=== PATIENT | male | born 1945 | race Caucasian/White ===

== ENCOUNTER → 2024-09-08 12:37 | Outpatient (REF) | payer MEDICARE, SELFPAY ==
[2024-09-08 13:29] LABS: Hematocrit 37.1 % (39.0-52.0); Hemoglobin 12.6 g/dL (13.0-18.0); Mean Corpuscular Hgb 30.4 pg (27.0-31.0); Mean Corpuscular Volume 89.6 fL (80.0-94.0); Platelet Count 174 10^3/uL (130-400); Red Blood Cell Count 4.14 10^6/uL (4.70-6.10); Red Cell Dist. Width 13.7 % (11.5-14.5); White Blood Cell Count 3.1 10^3/uL (4.8-10.8)
[2024-09-08 13:33] LABS: Urine Albumin Negative (Neg - Trace); Urine Bilirubin Negative (Negative); Urine Character Clear (Clear); Urine Color Yellow; Urine Glucose Negative (Negative); Urine Ketone Negative (Negative); Urine Leukocyte Negative (Negative); Urine Nitrite Negative (Negative); Urine Occult Blood Negative (Negative); Urine Urobilinogen Negative (Neg - 1+); Urine pH 6.5 (5.0-9.0)
[2024-09-08 13:41] LABS: ALT (SGPT) 21 U/L (0-50); AST (SGOT) 22 U/L (17-59); Albumin 4.6 g/dl (3.5-5.0); Alkaline Phosphatase 101 U/L (38-126); Blood Urea Nitrogen 24 mg/dl (9-20); Calcium 9.3 mg/dl (8.4-10.2); Carbon Dioxide 32 mmol/L (22-30); Chloride 95 mmol/L (98-107); Glucose 84 mg/dl (70-99); Potassium 4.8 mmol/L (3.5-5.1); Sodium 136 mmol/L (135-145); Total Bilirubin 0.7 mg/dl (0.2-1.3); Total Protein 6.8 g/dl (6.3-8.2); eGFR > 60.00
[2024-09-08 13:48] LABS: Absolute Neutrophils -Man Diff 1.8 10^3/uL (1.4-6.5); Atypical Lymphocytes 1 %; Band Neutrophils 3 % (0-3); Lymphocytes 28 % (20-51); Monocytes 11 % (2-9); Segmented Neutrophils 57 % (42-75)
[2024-09-08 13:49] LABS: Anisocytosis 1+; Normal RBC Morphology No; Ovalocytes 1+; Platelets Checked Yes
[2024-09-08 13:50] LABS: Hypochromasia Slight; Polychromasia Slight; Total Cells Counted 100
[2024-09-08 14:08] LABS: Procalcitonin 0.14 ng/ml (0.0-0.25)
== END ==
LOC: REG 12:37
PROVIDERS: ATTENDING PHYSICIAN Family Medicine
DX: R53.83 Other fatigue (principal); I95.0 Idiopathic hypotension; R53.1 Weakness; R68.83 Chills (without fever); J90 Pleural effusion, not elsewhere classified
CPT/HCPCS: 36415; 71046; 80053; 81003; 84145; 85025; 86140

== ENCOUNTER → 2024-09-14 09:47 | Outpatient (REF) | payer MEDICARE, SELFPAY | LOC: RAD 09:47 | PROVIDERS: ATTENDING PHYSICIAN Family Medicine | DX: R51.9 Headache, unspecified (principal); R26.81 Unsteadiness on feet; I62.00 Nontraumatic subdural hemorrhage, unspecified | CPT/HCPCS: 70450 ==

== ENCOUNTER 2024-09-15 18:24 | Inpatient (IN) | payer MEDICARE, SELFPAY ==
[2024-09-14] VITALS (12 sets, daily range): BP systolic 118–142; BP diastolic 64–106
[2024-09-14 11:43] LABS: % Basophils 0.2 % (0-2); % Eosinophils 0.2 % (0-6); % Immature Granulocytes 0.7 % (0-0.5); % Lymphocytes 18.9 % (20.5-51.1); % Monocytes 19.9 % (1.7-9.3); % Neutrophils 60.1 % (42.2-75.2); Absolute Lymphocytes 0.8 10^3/uL (1.2-3.4); Absolute Monocytes 0.8 10^3/uL (0.1-0.6); Absolute Neutrophils 2.5 10^3/uL (1.4-6.5); Hematocrit 38.4 % (39.0-52.0); Hemoglobin 12.9 g/dL (13.0-18.0); Mean Corp Hgb Conc. 33.6 g/dL (33.0-37.0); Mean Corpuscular Hgb 29.7 pg (27.0-31.0); Mean Corpuscular Volume 88.5 fL (80.0-94.0); Mean Platelet Volume 8.6 fL (7.4-10.4); Nucleated Red Blood Cells % 0 % (-); Platelet Count 217 10^3/uL (130-400); Red Blood Cell Count 4.34 10^6/uL (4.70-6.10); Red Cell Dist. Width 13.6 % (11.5-14.5); White Blood Cell Count 4.2 10^3/uL (4.8-10.8)
[2024-09-14 12:02] LABS: ALT (SGPT) 22 U/L (0-50); AST (SGOT) 24 U/L (17-59); Albumin 4.7 g/dl (3.5-5.0); Alkaline Phosphatase 118 U/L (38-126); Blood Urea Nitrogen 26 mg/dl (9-20); Calcium 9.9 mg/dl (8.4-10.2); Carbon Dioxide 29 mmol/L (22-30); Chloride 98 mmol/L (98-107); Glucose 94 mg/dl (70-99); Potassium 4.9 mmol/L (3.5-5.1); Sodium 136 mmol/L (135-145); Total Bilirubin 0.9 mg/dl (0.2-1.3); Total Protein 6.9 g/dl (6.3-8.2); eGFR > 60.00
--- NOTE | 2024-09-14 12:56 | CON.NEURO ---
Consultation
Order
Date of Consultation: 09/14/24
Requesting Provider: Mina Palomares MD
Reason for Consult: Ataxia
Neurology Consultation Note.
HPI: This is a 78-year-old man on Venetoclax/Obinutuzumab who presented to [facility] on 09/14/2024 with intermittent dizziness, imbalance, and left hearing loss that began 10 days ago. Upon getting out of bed, he experienced severe
dizziness. For the next two days, he had spinning sensations and imbalance, necessitating the use of a walker. The spinning sensation resolved, but dizziness and imbalance persisted, particularly when changing positions. He also noted reduced
hearing, predominantly in the left ear, accompanied by clicking noises. Associated symptoms included chills, nausea, and leg weakness. The patient denies ear pressure or pain, head trauma, fever. He reports intermittent headaches relieved by Tylenol.
Mr. Ramírez recalls experiencing flu-like symptoms for most of July, with negative tests for RSV, COVID, and influenza. Blood cultures were also negative. On August 20, the patient reportedly had an anaphylactic reaction to IVIG infusion. He was
treated with steroids. Following this episode, he had difficulty walking for two days but did not require hospitalization.
The patient was reportedly seen by Janis Hankins MD(ENT) around 1 year ago for sound amplification/hearing impairment and was fount to have 'fluid in my ear'
The patient has a history of subdural hematoma in 2019 and atrial fibrillation. He was previously on AC but discontinued it after the subdural hematoma. He is not on ASA.
ER VS: 135/86, 72, afebrile.
EKG: NSR, first degree of AV block, QTc Int : 421 ms
PDMP: no recently prescribed medications
Labs: platelets�217, absolute lymphocyte count�0.8
CT head wo contrast (09/14/24)�moderate generalized atrophy.
PMH: h/o traumatic R subdural hematoma(2019), CLL on acalabrutinib, PA Fib(s/o ablation), HTN, DLP, HFpEF, CKD, nephrolithiasis, eating disorder, NOS, vit D deficiency
PSH: ILR, R jagdish holes, shoulder arthroscopy, knee arthroscopy, PleurX
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
FH: colon cancer
All:PNC
ROS: Constitutional: Negative. Negative for chills, fever and unexpected weight change.
HENT: Positive for left greater than right hearing impairment
Eyes: Negative. Negative for photophobia, pain and visual disturbance.
Respiratory: Negative for cough, choking and shortness of breath.
Cardiovascular: Negative for chest pain, palpitations and leg swelling.
Gastrointestinal: Positive for intermittent nausea
Endocrine: Negative. Negative for cold intolerance.
Musculoskeletal: Positive for change in gait
Skin: Negative for rash.
Allergic/Immunologic: Negative. Negative for immunocompromised state.
Neurological: Positive for imbalance
General: Well developed. In no acute distress.
Cardio: Regular rate and rhythm without murmur. Extremities are without cyanosis or edema.
Neuro:
Mental Status: Alert, oriented to person, place, and date. Normal attention and recall. Mildly impaired comprehension, probably due to hearing impairment good fund of knowledge. Follows complex requests across the midline. Comprehension, naming,
and repetition intact. Immediate and delayed recall 3/3.
Cranial Nerves: Pupils are equally round and reactive to light. EOMs full. Visual mckeon full to confrontation. No ptosis. No nystagmus. Face symmetric. Absent hearing on the L and impaired on the right. No lateralization on Hensley's testing.
The palate elevated well. SCMs and traps 5/5. Tongue midline. No dysarthria.
Motor: Normal bulk and tone. No pronator or arm drift. Strength 5/5 throughout. No clonus.
Reflexes: Grasp on the right
Sensory: Normal vibration at the toes.
Coordination: No dysmetria or tremor or HTS
Gait: deferred
Assessment and Plan:
I. Probable peripheral vertigo
II. History of traumatic R subdural hematoma(2019)
III. Ambulatory dysfunction
IV. CLL, chronic immunosuppression
-Fall precautions
-Please obtain orthostatic vital signs
-Brain MRI wo brenda to rule out subacute AICA infarct
-Meclizine 25 mg every 8 hours as needed
-PT
-ENT consult
-Please obtain medical records from [facility] and [facility]
-Will follow
I personally reviewed all radiology and labs along with past medical records pertinent to current medical problems. Total time spent in patient care is 60 minutes.
Thank you for allowing us to participate in the care of this patient. We will continue to follow. Please do not hesitate to contact us with any questions or concerns.
Subjective/Objective
Subjective Data
Date of Service: September 14, 2024
Objective Data
Vital Signs
Temp Pulse Resp BP Pulse Ox
36.7 C 67 22 137/95 100
09/14/24 11:13 09/14/24 12:45 09/14/24 12:45 09/14/24 12:48 09/14/24 12:45
Lab Results
09/14/24 11:24
09/14/24 11:24
Sodium 136 mmol/L (135-145) 09/14/24 11:24
Potassium 4.9 mmol/L (3.5-5.1) 09/14/24 11:24
BUN 26 mg/dl (9-20) H 09/14/24 11:24
Glucose 94 mg/dl (70-99) 09/14/24 11:24
Calcium 9.9 mg/dl (8.4-10.2) 09/14/24 11:24
Patient Allergies
Penicillins Allergy (Verified 09/14/24 11:12)
Hives
Medications
-
Home Medications
�Medication �Instructions �Recorded
ezetimibe 10 mg tablet 10 mg PO HS High cholesterol 01/05/20
Saccharomyces boulardii 250 mg 250 mg PO DAILY Gastrointestinal 12/28/22
capsule (Florastor) issue
acalabrutinib maleate 100 mg 100 mg PO DAILY Cancer 12/28/22
tablet (Calquence (acalabrutinib
maleate))
cholecalciferol (vitamin D3) 50 50 mcg PO DAILY Supplement 12/28/22
mcg (2,000 unit) tablet (Vitamin
D3)
furosemide 20 mg tablet 20 mg PO MOWESA Fluid 12/28/22
retention/Swelling
spironolactone 25 mg tablet 12.5 mg PO DAILY Blood pressure 12/28/22
rosuvastatin 10 mg tablet (Crestor) 10 mg PO HS High Cholesterol 08/08/23
acetaminophen 325 mg tablet 650 mg (2 x 325 mg) PO Q4HPRN PRN 08/09/23
Mild Pain / Temp > 101 #0 tabs
metoprolol succinate 25 mg 12.5 mg (1/2 x 25 mg) PO DAILY 08/09/23
tablet,extended release 24 hr Blood pressure #0 tabs
midodrine 5 mg tablet 5 mg PO TIDPRN PRN SBP < 90 #10 08/09/23
tabs
psyllium husk (aspartame) 3.4 gram 1 packet PO DAILY Constipation #44 08/09/23
oral powder packet (Metamucil ea
Fiber Singles)
tamsulosin 0.4 mg capsule 0.4 mg PO DAILY Urinary issue #30 08/09/23
caps
tramadol 50 mg tablet 25 mg (1/2 x 50 mg) PO Q8H PRN 08/09/23
mod-severe pain #10 tabs
Vital Signs and Labs
-
Vital Signs and Labs:
Vital Signs
Temp Pulse Resp BP Pulse Ox
36.7 C 67 22 137/95 100
09/14/24 11:13 09/14/24 12:45 09/14/24 12:45 09/14/24 12:48 09/14/24 12:45
Lab Results
09/14/24 11:24
09/14/24 11:24
Sodium 136 mmol/L (135-145) 09/14/24 11:24
Potassium 4.9 mmol/L (3.5-5.1) 09/14/24 11:24
BUN 26 mg/dl (9-20) H 09/14/24 11:24
Glucose 94 mg/dl (70-99) 09/14/24 11:24
Calcium 9.9 mg/dl (8.4-10.2) 09/14/24 11:24
Home Medications
-
Home Medications
ezetimibe 10 mg tablet 10 mg PO HS High cholesterol 01/05/20
Saccharomyces boulardii 250 mg capsule (Florastor) 250 mg PO DAILY Gastrointestinal issue 12/28/22
acalabrutinib maleate 100 mg tablet (Calquence (acalabrutinib maleate)) 100 mg PO DAILY Cancer 12/28/22
cholecalciferol (vitamin D3) 50 mcg (2,000 unit) tablet (Vitamin D3) 50 mcg PO DAILY Supplement 12/28/22
furosemide 20 mg tablet 20 mg PO MOWESA Fluid retention/Swelling 12/28/22
spironolactone 25 mg tablet 12.5 mg PO DAILY Blood pressure 12/28/22
rosuvastatin 10 mg tablet (Crestor) 10 mg PO HS High Cholesterol 08/08/23
acetaminophen 325 mg tablet 650 mg (2 x 325 mg) PO Q4HPRN PRN Mild Pain / Temp > 101 #0 tabs 08/09/23
metoprolol succinate 25 mg tablet,extended release 24 hr 12.5 mg (1/2 x 25 mg) PO DAILY Blood pressure #0 tabs 08/09/23
midodrine 5 mg tablet 5 mg PO TIDPRN PRN SBP < 90 #10 tabs 08/09/23
psyllium husk (aspartame) 3.4 gram oral powder packet (Metamucil Fiber Singles) 1 packet PO DAILY Constipation #44 ea 08/09/23
tamsulosin 0.4 mg capsule 0.4 mg PO DAILY Urinary issue #30 caps 08/09/23
tramadol 50 mg tablet 25 mg (1/2 x 50 mg) PO Q8H PRN mod-severe pain #10 tabs 08/09/23
--- NOTE | 2024-09-14 15:01 | HPS.HSE ---
Addendum entered and electronically signed by Selam Omalley MD 09/14/24 16:21:
I saw and examined the patient.
The MODERN LANGUAGES PROFESSOR or PA's note was reviewed and I agree with the note.
Comment:
78 y/o pleasant gentleman presented to the hospital with about 10 days of dizziness. He also had some hearing loss. He stated that he always had mild hearing loss in the ear but it is markedly gone down. He also hears some clicking noise in the
left ear mostly. He states that laying in bed or sitting in 1 position does not cause any problems when he changes position to either sides or sits up or stands up and starts walking he feels uncomfortable to point where he has been using a walker.
nO fever. Had a URI in Jul which lasted almost all of JUL. Father with H/O hearing loss at old age.
On examination awake alert oriented conversant
Cardiovascular system S1-S2 appreciated
Chest clear to auscultation
Abdomen soft and nontender
Neuro exam-no cranial nerve deficits noted except for decreased hearing
No facial droop
5 x 5 strength bilateral upper extremities and lower extremity
No sensory loss
Reflexes slightly hyperreflexic legs
# Vertigo
From history and exam mostly appears like peripheral vertigo
However get an MRI to rule out acute stroke-the brainstem
As needed meclizine
ENT evaluation
PT consultation for balance training
Orthostatic vital signs
Head CT with no acute changes
# Hearing loss
Patient has seen Dr. Bruce a year ago
Will consult
# Atrial fibrillation-paroxysmal diagnosed in 2011
Taken off of anticoagulation in 2019 when he had subdural hemorrhage
Patient had a Linq monitor placed in 2019 with no evidence of A-fib on interrogation per patient
He follows with [facility] cardiology
History of A-fib ablation
Continue with metoprolol
# Prostate disease-continue finasteride
# Chronic HFpEF-Lasix as needed
# CLL-on Venclexta
# Hyperlipidemia-on Crestor
# History of pleural effusion with thoracentesis and left Pleurx catheter in the past
# History of subdural hematoma
# Diverticulosis
# Multilevel C-spine DJD
# DVT prophylaxis
# Full code
Discussed with family at bedside
Original Note:
Family Physician
-
Family Physician: Reji Bosch
Chief Complaint
-
Weakness and Left Hearing Loss
History of Present Illness
Patient is a 78 y/o male past medical history of CLLD, CHF, paroxysmal A-Fib, and CKD who presents with weakness and hearing loss. Patent reports reports about 10 days he developed significant dizziness while lying in bed. He notes the dizziness
symptoms lasted for about 3 days, but he continues to have a sensation of feeling unbalanced. He notes he is having difficulty ambulating and his lower extremities seem weak. Over the past few days he has noted decreasing hearing particularly on
the left. He denies any ringing in the ears. He denies weakness of the upper extremities.
Medical History
Past Medical History
Past Medical History: Reports Other
Additional Past Medical History:
CLL
Chronic HFpEF
Paroxysmal Atrial Fibrillation
Hypertension
CKD III
Persistent / Recurrent Left Pleural Effusion
Subdural Hematoma
BPH
Past Surgical History: Reports Other
Additional Past Surgical History:
Pleurodesis
Pleurx catheter placement / removal
Dione holes
Social History
Tobacco: Non-smoker
Alcohol: None
Drug: None
Family History
Family History: Not pertinent
Allergies / Home Medications
Allergies reflects when Allergies were last updated in [employer].
Home Medications with original date entered in [employer]
Allergy/Medication List:
Allergies
Allergy/AdvReac Type Severity Reaction Status Date / Time
Penicillins Allergy Hives Verified 09/14/24 11:12
Home Medications
Saccharomyces boulardii 250 mg capsule (Florastor) 250 mg PO DAILY Gastrointestinal issue 12/28/22
cholecalciferol (vitamin D3) 50 mcg (2,000 unit) tablet (Vitamin D3) 50 mcg PO DAILY Supplement 12/28/22
furosemide 20 mg tablet 20 mg PO DAILY Fluid retention/Swelling 12/28/22
rosuvastatin 10 mg tablet (Crestor) 10 mg PO HS High Cholesterol 08/08/23
psyllium husk (aspartame) 3.4 gram oral powder packet (Metamucil Fiber Singles) 1 packet PO DAILY Constipation #44 ea 08/09/23
finasteride 5 mg tablet 5 mg PO DAILY 09/14/24
metoprolol tartrate 25 mg tablet 25 mg PO DAILY 09/14/24
venetoclax 100 mg tablet (Venclexta) 200 mg PO DAILY 09/14/24
Review of Systems
-
A 12 point ROS was completed and negative except as noted: Yes
Constitutional: Denies Fever or Chills
EENT: Denies Sore Throat or Runny Nose
Respiratory: Denies Cough or Trouble Breathing
Neurological: Reports See HPI
Physical Exam
Vital Signs
Vital Signs
Temp Pulse Resp BP Pulse Ox
98.1 F 69 17 142/64 100
09/14/24 11:13 09/14/24 14:00 09/14/24 14:00 09/14/24 14:00 09/14/24 14:00
Physical Exam
General: Comfortable and Conversant
HEENT: Anicteric, Moist mucous membranes, PERRLA and Other ( Nystagmus with gaze to the Left; Small amount of dry cerumen present in left external auditory canal; Bilateral TMs appears pearly clear without retraction)
Respiratory: Clear and Non Labored Respirations
Cardiac: S1/S2 and Regular Rhythm
GI: Soft and Non Tender
Rectal: Deferred by Provider
Musculoskeletal: No Clubbing, No Cyanosis and No Edema
Skin: Warm and Dry
Neuro: Awake, Alert, Oriented and No Motor Deficits
Psych: Calm
Laboratory Results
-
09/14/24 11:24
09/14/24 11:24
Laboratory Results
Total Bilirubin 0.9 mg/dl (0.2-1.3) 09/14/24 11:24
AST 24 U/L (17-59) 09/14/24 11:24
ALT 22 U/L (0-50) 09/14/24 11:24
Alkaline Phosphatase 118 U/L (38-126) 09/14/24 11:24
Data Reviewed
-
CT Scan: Report Reviewed by me
Lab Data: Labs Reviewed by me
Old Records: Reviewed
Impression/Plan
-
Dysequilibrium / Left Hearing Loss, suspect inner ear related
-Neurology consulted by ED
-Consult ENT
-Check Brain MRI
-Continue Meclizine PRN
-Consult PT/OT
Chronic HFpEF
-Continue Lasix
-Monitor Daily Weights
Paroxysmal Atrial Fibrillation
-Patient is not on anticoagulation following subdural hematoma
-Continue metoprolol
CLL
-Continue Venclexta
-Overall counts appear stable
Essential Hypertension
-Continue metoprolol
Hyperlipidemia
-Continue Crestor
CKD III
-Creatinine at baseline
BPH
-Continue finasteride
Hx Subdural Hematoma s/p Dione Holes
DVT proph: SCDs
Code Status: Full Code
--- NOTE | 2024-09-14 15:22 | ED.GENMED ---
History of Present Illness
General
Chief Complaint: Dizziness
Source: patient and family
Exam Limitations: none
Time Seen by Provider: 09/14/24 12:18
History of Present Illness
History of Present Illness:
78-year-old male onset of disequilibrium about 1 week ago. Also noted some decreased hearing mostly in the left ear. No headache no double vision no other neurologic symptoms. Sent in by his primary physician for fluids. Patient had an
outpatient CT scan that was unremarkable
Past History
Past History
ED Past Medical History: Arrthythmia (Atrial fibrillation), Cancer (Chronic lymphocytic leukemia), CHF, GERD, HTN, Hypercholesterolemia and Other (Subdural hematoma, Pleural effusion, Diverticulitis, Anemia, Diastolic Dysfunction)
ED Past Surgical History: Cardiac (Cardiac ablation, LINK ) and Other (Lung surgery, Pleurx catheter removed)
Social History
Tobacco: Non-smoker
Alcohol: None
Drug: None and Other
Personal:
Living: with family
Employment: Other
Family History
Family History: Other
Review of Systems
Review of Systems
All Other Systems: Not applicable
Respiratory: Reports no symptoms
Cardiac: Reports no symptoms
ABD/GI: Reports no symptoms
Phy Exam
Physical Exam
Physical Exam:
GENERAL: Alert and oriented in no apparent distress
EYE: Orbits normal. Ongoing left lateral nystagmus. No rotatory or bidirectional nystagmus.
NECK: Supple, no significant adenopathy.
ENT: Pharynx without erythema
CARDIAC: Regular rate and rhythm without any obvious murmurs.
LUNGS: Clear breath sounds,normal
ABDOMEN: Soft, without focal tenderness or distention
NEUROLOGICAL: Alert and oriented , cranial nerves II through XII intact. Speech normal. [id number] normal. [id number] normal. Light touch intact
SKIN: Warm and dry, no rash or lesion, no discoloration, skin intact.
MUSCULOSKELETAL: No edema,no deformity.Good color
PSYCH: Normal and appropriate interaction.
Course
Orders/Labs/Results
Orders:
Orders
09/14/24 11:15
EKG [Electrocardiogram (*1)] Urgent
Reason for Study: Vertigo / Dizzy
09/14/24 11:16
EKG- Treatment ONCE
09/14/24 11:24
CBC/With Diff [Complete Blood Count/With Diff] Urgent
Comprehensive Metabolic Panel Urgent
Abnormal Lab Results
09/14/24
11:24
WBC 4.2 L 10^3/uL
(4.8-10.8)
RBC 4.34 L 10^6/uL
(4.70-6.10)
Hgb 12.9 L g/dL
(13.0-18.0)
Hct 38.4 L %
(39.0-52.0)
Absolute Lymphs (auto) 0.8 L 10^3/uL
(1.2-3.4)
Absolute Monos (auto) 0.8 H 10^3/uL
(0.1-0.6)
Immature Gran % 0.7 H %
(0-0.5)
Lymphocytes % 18.9 L %
(20.5-51.1)
Monocytes % 19.9 H %
(1.7-9.3)
BUN 26 H mg/dl
(9-20)
09/14/24 11:24
09/14/24 11:24
Vital Signs
Initial and Last Documented VS:
Initial Vital Signs
Temp Pulse Resp BP Pulse Ox
98.1 F 72 16 135/86 100
09/14/24 11:13 09/14/24 11:13 09/14/24 11:13 09/14/24 11:13 09/14/24 11:13
Last Documented Vital Signs
Temp Pulse Resp BP Pulse Ox
98.1 F 69 17 142/64 100
09/14/24 11:13 09/14/24 14:00 09/14/24 14:00 09/14/24 14:00 09/14/24 14:00
MDM/Problems Addressed
Differential Diagnosis Includes:
Patient with a continual left horizontal nystagmus. Disequilibrium/hearing loss. M�ni�re's. Possible central etiology. Neurology's input appreciated. Workup in progress.
*Radiology
Radiology exam reviewed: radiology read reviewed (CT earlier negative)
*Pulse Oximetry
Patient hypoxic: no
*EKG
Interpreted by ED Provider?: Yes
Interpretation: normal
Comparison EKG: changes noted
Heart Rate: 68
Rate: normal
Rhythm: sinus
[place]: normal axis
Interval: normal interval
QRS Pattern: normal QRS
Ischemia: no ischemia
*Sde Interpretation
Rate: normal
Interpretation: normal
Heart Rate: 70
Rhythm: sinus
*Critical Care Note
Total Time (30-74mins, 75-104mins- exclusive of procedures): Not Applicable
Data Reviewed
Review of Other/Old Records Reveals: Labs, Records and Testing
ED Attending Note
-
Portions of this chart may have been created with voice recognition software.� Occasional wrong word or��sound alike� substitutions may have occurred due to the inherent limitations of voice recognition software.
Discharge Plan
Departure
Patient Disposition: Admit
Date of Disposition: 09/14/24
Time of Disposition: 15:24
Presentation/result/management discussed w/ accepting MD/DO: Hospitalist
Discharge Problem:
Disequilibrium/nystagmus, Acute hearing loss
Prescriptions:
No Action
ezetimibe 10 MG tablet
10 mg PO HS
spironolactone 25 mg tablet
12.5 mg PO DAILY
furosemide 20 mg tablet
20 mg PO MOWESA
Saccharomyces boulardii [Florastor] 250 mg Capsule
250 mg PO DAILY
cholecalciferol (vitamin D3) [Vitamin D3] 50 mcg (2,000 unit) Tablet
50 mcg PO DAILY
Calquence (acalabrutinib mal) 100 mg Tablet
100 mg PO DAILY
rosuvastatin [Crestor] 10 mg Tablet
10 mg PO HS
midodrine 5 mg Tablet
5 mg PO TIDPRN PRN (Reason: SBP < 90) Qty: 10 0RF
tamsulosin 0.4 mg Capsule
0.4 mg PO DAILY Qty: 30 0RF
acetaminophen 325 mg Tablet
650 mg PO Q4HPRN PRN (Reason: Mild Pain / Temp > 101) Qty: 0 0RF
tramadol 50 mg tablet
25 mg PO Q8H PRN (Reason: mod-severe pain) Qty: 10 0RF
Metamucil Fiber Singles 3.4 gram Powder In Packet
1 packet PO DAILY Qty: 44 0RF
metoprolol succinate 25 mg tablet extended release 24 hr
12.5 mg PO DAILY Qty: 0 0RF
Rx Instructions:
hold for top number on BP <90
Referrals:
Reji Bosch MD [Family Provider] -
Interventions
Interventions:
*Risk Screen - Suicide Last Done: 09/14/24 11:13
*General Assessment Last Done: 09/14/24 11:13
*Neglect/Abuse Screening Last Done: 09/14/24 11:13
ED- Fall Risk Assessment Last Done: 09/14/24 12:44
ED- Neurological Assessment Last Done: 09/14/24 12:44
ED- Cardiac Assessment Last Done: 09/14/24 12:44
Discharge Date and Time
Print Language: URUGUAYAN
--- NOTE | 2024-09-14 16:21 | W.PN.UPDATE ---
Update Note
Progress Note Update
billing
--- NOTE | 2024-09-14 17:56 | W.CON.OTO ---
Otolaryngology Consult
Chief Complaint
Dizziness
History of Present Illness
Patient is a 78-year-old male who for the last 10 days has been experiencing dizziness. Patient states he was getting out of bed approximately 10 days ago when he felt very dizzy. He describes this as imbalance and the sensation that he is moving
on a boat. With symptoms have persisted for most of the last 10 days. Intermittently for 2 days while getting out of bed he did have some spinning that lasted for several minutes but this is no longer present. The patient also notes some hearing
loss in the left greater than right ear that he states seems to be rather sudden. He has a history of some mild hearing loss at baseline but feels that his hearing has worsened over the last 10 days. He also has some clicking noises in his left
ear. When ambulating he has to use a walker due to the fact that his legs feel weak. He also has some chills and nausea. He additionally gets some intermittent headaches. He denies any recent fevers. The patient does have a history of a
subdural hematoma and came to the hospital for further evaluation. Of interest he did have an anaphylactic reaction to IVIG on August 20 at the [facility]. The patient has a history of CLL and gets daily oral chemotherapy in
addition to intravenous chemotherapy every 2 months. Mr. Ramírez was seen by my partner, Dr. Cr Bruce, back in July 2021 for hearing loss.
Medical History
Past Medical History: Arrhythmia, Cancer ( CLL), CHF, GERD, HTN, Hypercholesterolemia and Other ( subdural hematoma, pleural effusion, diverticulitis, anemia, diastolic dysfunction)
Past Surgical History: Cardiac ( cardiac ablation, LINK) and Other ( lung surgery)
Patient Allergies:
Allergies
Allergy/AdvReac Type Severity Reaction Status Date / Time
Penicillins Allergy Hives Verified 09/14/24 11:12
Home Medications / Current Medications:
�Medication �Instructions �Recorded
finasteride 5 mg tablet 5 mg PO DAILY 09/14/24
metoprolol tartrate 25 mg tablet 25 mg PO DAILY 09/14/24
venetoclax 100 mg tablet 200 mg PO DAILY 09/14/24
(Venclexta)
Physical Exam
Vitals / Labs:
Vital Signs
Temp 98.1 F 09/14/24 11:13
Temp route: Oral 09/14/24 11:13
Pulse 73 09/14/24 16:15
Resp Rate 15 09/14/24 16:15
Blood pressure 129/73 09/14/24 16:06
Blood pressure extremity used: Left upper arm 09/14/24 11:13
Position: Lying 09/14/24 12:48
MAP (cuff-James Monitor) 90 09/14/24 16:06
SaO2 98 09/14/24 14:30
Oxygen Mode of Delivery Room air 09/14/24 11:13
Actual Weight 77.7 kg 09/14/24 11:04
Lab Results
09/14/24 11:24
09/14/24 11:24
Exam:
Physical Exam:
GENERAL: Alert and oriented in no apparent distress
EYE: Orbits normal. Extraocular motions intact, pupils equally round and reactive to light and accommodation. Left lateral nystagmus, with gaze to left. No rotatory or bidirectional nystagmus.
EARS: External auditory canals clear bilaterally, tympanic membranes intact and mobile bilaterally, middle ear cavities clear bilaterally.
NOSE: Nasal cavity clear bilaterally.
ORAL CAVITY: Oral cavity clear bilaterally, no exudate or erythema present.
NECK: Supple, no significant adenopathy.
PSYCH: Normal and appropriate interaction.
Assessment / Plan
A/P- 78-year-old male with dizziness, vertigo, hearing loss.
- Patient seems to have acute viral labyrinthitis, possibly of left ear.
- Patient feels like he has some acute hearing loss in the left greater than right ear as well.
- CT scan of head and MRI of brain both within normal limits.
-Patient to be admitted for observation.
-Would recommend treatment with steroids to help with suspected labyrinthitis.
-Decadron started 8 mg IV every 12 hours.
-Can have vestibular therapy evaluate patient tomorrow.
-I will follow patient along with you.
Data Reviewed
Radiology: Image Personally Visualized and interpreted ( MRI reviewed. No acute intracranial abnormalities noted. Middle ear cavities, mastoids, paranasal sinuses all clear.)
CT Scan: Image Personally Visualized and interpreted ( CT scan of head reveals clear middle ear cavities and mastoid cavities bilaterally as well as clear paranasal sinuses. No intracranial abnormalities noted.) and Discussed with Family
MRI: Image Personally Visualized and interpreted
Lab Data: Labs Reviewed by me
--- NOTE | 2024-09-14 18:41 | PTCARENOTE ---
Pt received as admit from ED. AAOx3. NSR on classroom monitor. VSS. Pt able to ambulate with assist x1 from stretcher to bed. Family at bedside, call cantu in reach.
[2024-09-14] MEDS: DECADRON 8 MG IV (19:53)
[2024-09-14] MEDS: CRESTOR 10 MG PO (21:57)
[2024-09-15] VITALS (10 sets, daily range): BP systolic 100–119; BP diastolic 57–68; PULSE 58–70; O2SAT 99; BMI 27.4
[2024-09-15 07:27] LABS: Hematocrit 35.6 % (39.0-52.0); Hemoglobin 12.2 g/dL (13.0-18.0); Mean Corp Hgb Conc. 34.3 g/dL (33.0-37.0); Mean Corpuscular Volume 87.7 fL (80.0-94.0); Mean Platelet Volume 8.9 fL (7.4-10.4); Platelet Count 206 10^3/uL (130-400); Red Blood Cell Count 4.06 10^6/uL (4.70-6.10); Red Cell Dist. Width 13.4 % (11.5-14.5); White Blood Cell Count 3.8 10^3/uL (4.8-10.8)
[2024-09-15 07:41] LABS: Blood Urea Nitrogen 23 mg/dl (9-20); Carbon Dioxide 22 mmol/L (22-30); Chloride 103 mmol/L (98-107); Estimated Creatinine Clearance 48 ml/min; Glucose 115 mg/dl (70-99); Potassium 5.1 mmol/L (3.5-5.1); Sodium 138 mmol/L (135-145); eGFR > 60.00
[2024-09-15] MEDS: DECADRON 8 MG IV ×2 (08:14→20:27)
[2024-09-15] MEDS: LASIX 20 MG PO (08:15)
[2024-09-15] MEDS: VITAMIN D3 (cholecalciferol) 50 MCG PO (08:15)
[2024-09-15] MEDS: PROSCAR 5 MG PO (08:15)
[2024-09-15] MEDS: LOPRESSOR 25 MG PO (08:15)
[2024-09-15] MEDS: FLORASTOR 250 MG PO (08:15)
[2024-09-15] MEDS: METAMUCIL, KONSYL 1 PACKET PO (08:16)
[2024-09-15] MEDS: NON-FORMULARY ITEM 200 MG PO (08:16)
--- NOTE | 2024-09-15 11:29 | W.PN.HOSP.TC ---
Today's Communication/Plan
-
vestibular/balance training
As needed meclizine
Assessment / Plan
Assessment / Plan
78 y/o pleasant gentleman presented to the hospital with about 10 days of dizziness. He also had some hearing loss. He stated that he always had mild hearing loss in the ear but it is markedly gone down. He also hears some clicking noise in the
left ear mostly. He states that laying in bed or sitting in 1 position does not cause any problems when he changes position to either sides or sits up or stands up and starts walking he feels uncomfortable to point where he has been using a walker.
nO fever. Had a URI in Jul which lasted almost all of JUL. Father with H/O hearing loss at old age.
Did not sleep well last night because of steroids. He does not feel Mutch of an improvement. He states that he still has off-balance feeling when he walks. If he does not change position he feels fine.
On examination awake alert oriented conversant
Cardiovascular system S1-S2 appreciated
Chest clear to auscultation
Abdomen soft and nontender
Neuro exam-Nystagmus
# Vertigo
From history and exam mostly appears like peripheral vertigo
MRI neg for CVA
As needed meclizine
ENT evaluation and Neuro eval appreciated
PT consultation for vestibular/balance training
# Hearing loss
Patient has seen Dr. Bruce a year ago
Steroids started to treat labyrinthitis
Patient is aware that hearing deficit may or may not improve
# Atrial fibrillation-paroxysmal diagnosed in 2011
Taken off of anticoagulation in 2019 when he had subdural hemorrhage
Patient had a Linq monitor placed in 2019 with no evidence of A-fib on interrogation per patient
He follows with [facility] cardiology
History of A-fib ablation
Continue with metoprolol
# Prostate disease-continue finasteride
# Chronic HFpEF-Lasix as needed
# CLL-on Venclexta
# Hyperlipidemia-on Crestor
# History of pleural effusion with thoracentesis and left Pleurx catheter in the past
# History of subdural hematoma
# Diverticulosis
# Multilevel C-spine DJD
# DVT prophylaxis
# Full code
Discussed with family at bedside
Anticipated Discharge: Within 24 hours
Subjective/Interval History
-
Date of Service: September 15, 2024
Objective Data
-
Labs:
Laboratory Results
09/15/24
05:55
WBC 3.8 L
Hgb 12.2 L
Hct 35.6 L
Plt Count 206
Sodium 138
Potassium 5.1
Chloride 103
Carbon Dioxide 22
BUN 23 H
Creatinine 1.1
Glucose 115 H
Calcium 9.0
Vital Signs:
Vital Signs
Temp Pulse Resp BP Pulse Ox
97.8 F 59 17 100/57 95
09/15/24 11:10 09/15/24 11:10 09/15/24 11:10 09/15/24 11:10 09/15/24 11:10
--- NOTE | 2024-09-15 12:20 | CHAP ---
Msgr. Ezra Foy of [facility] in [place] gave Mr. Darrell Aguilera Communion and anointed him.
--- NOTE | 2024-09-15 12:35 | W.PN.ENT ---
Today's Communication
-
Continue steroids. Continue therapy. Plan for discharge home once safe with outpatient follow-up.
Impression / Plan
-
A/X-01-pnvs-old male with dizziness and imbalance, likely viral labyrinthitis.
-CT and MRI both within normal limits.
-Remains imbalanced with walking.
-Most likely cause would be viral labyrinthitis.
-Continue IV Decadron at 8 mg every 12 hours.
-Continue PT.
-Once patient is stable and safe to go home he would likely benefit from discharge and further outpatient vestibular therapy.
-Patient should also be seen in my office to have his hearing checked.
-Hopefully we can discharge him home in 24 to 48 hours once he is deemed to be medically stable and safe.
-This was discussed with the patient and his daughter at length at the bedside and they are in agreement.
-I will continue to follow.
Subjective Data
-
Patient with difficulty sleeping last evening.
Still with some imbalance when walking.
Patient feels fine when sitting more lying down.
Was able to ambulate with assistance with PT today.
Tolerating p.o. diet without significant nausea or vomiting.
Hearing loss and left greater than right ear remains unchanged.
Denies any new complaints.
Objective Data
-
Vital Signs
Temp Pulse Resp BP Pulse Ox
97.8 F 59 17 100/57 95
09/15/24 11:10 09/15/24 11:10 09/15/24 11:10 09/15/24 11:10 09/15/24 11:10
Lab Results
09/15/24 05:55
09/15/24 05:55
Calcium 9.0 mg/dl (8.4-10.2) 09/15/24 05:55
Total Bilirubin 0.9 mg/dl (0.2-1.3) 09/14/24 11:24
AST 24 U/L (17-59) 09/14/24 11:24
ALT 22 U/L (0-50) 09/14/24 11:24
Alkaline Phosphatase 118 U/L (38-126) 09/14/24 11:24
Physical Exam
-
Awake, alert, oriented, in no acute distress.
Pupils equally round and reactive to light and accommodation bilaterally.
Extraocular motions intact.
Brief nystagmus to left with left lateral gaze.
Otherwise neurologically intact.
Remainder of physical exam within normal limits.
Data Reviewed
-
Radiology Results: Report Reviewed and Image Reviewed ( MRI reviewed, within normal limits, no acute findings.)
--- NOTE | 2024-09-15 15:12 | CM ---
Patient seen at bedside with daughter Abena
IA completed
GUEVARA form explained & signed. In chart.
Lives in a multistory home with , elevator in home, 1st floor set up
PLOF: Independent until 10 days ago and now has been using a walker
DME: Walker, cane
Has had [facility] in past and Outpatient PT
denies insecurities
PT rec outpatient therapy
PCP: Reji Bosch
Pharmacy, [facility], [facility]
PLAN: Home, PT rec outpatient therapy, script needed at d/c
--- NOTE | 2024-09-15 17:42 | W.PN.NEURO.1 ---
Today's Communication / Plan
-
.
Subjective/Objective
Subjective Data
Date of Service: September 15, 2024
Neurology follow-up note.
HPI: Mr. Ramírez states that his balance has worsened since yesterday. No reports of diplopia, dysarthria, sialorrhea, visual hallucinations, anosmia or abnormal movements.
According to patient's daughter the patient has had intermittent dhronic dream-enactment behaviors for decades.
Brain MRI�no evidence of acute infarcts, cerebellar lesion or focal atrophy.
PMH: h/o traumatic R subdural hematoma(2019), CLL on acalabrutinib, PA Fib(s/o ablation), HTN, DLP, HFpEF, CKD, nephrolithiasis, eating disorder, NOS, vit D deficiency
PSH: ILR, R jagdish holes, shoulder arthroscopy, knee arthroscopy, PleurX
All:PNC
ROS: Constitutional: Negative. Negative for chills, fever and unexpected weight change.
HENT: Positive for left greater than right hearing impairment
Eyes: Negative. Negative for photophobia, pain and visual disturbance.
Respiratory: Negative for cough, choking and shortness of breath.
Cardiovascular: Negative for chest pain, palpitations and leg swelling.
Gastrointestinal: Positive for intermittent nausea
Endocrine: Negative. Negative for cold intolerance.
Musculoskeletal: Positive for change in gait
Skin: Negative for rash.
Allergic/Immunologic: Positive for immunocompromised state.
Neurological: Positive for imbalance, positive for chronic dream-enactment behaviors, insomnia
General: Well developed. In no acute distress.
Cardio: Regular rate and rhythm without murmur. Extremities are without cyanosis or edema.
Neuro:
Mental Status: Alert, oriented to person, place, and date. Normal attention and recall. Mildly impaired comprehension, probably due to hearing impairment good fund of knowledge. Follows complex requests across the midline. Comprehension, naming,
and repetition intact. Anxious mood.
Cranial Nerves: Pupils are equally round and reactive to light. EOMs full except for mild clear impaired upgaze. Visual mckeon full to confrontation. No ptosis. No nystagmus. Face symmetric. Absent hearing on the L and impaired on the right.
No lateralization on Hensley's testing. The palate elevated well. SCMs and traps 5/5. Tongue midline. No dysarthria.
Motor: Normal bulk and tone. No pronator or arm drift. Strength 5/5 throughout. No clonus.
Reflexes: Limited exam due to difficulties with relaxation
Sensory: Normal vibration at the toes.
Coordination: No dysmetria on [id number].
Gait: Wide stance, narrow base, short stride, turns en bloc.
Assessment and Plan:
I. Parkinsonism. PSP-C?
II. History of traumatic R subdural hematoma(2019)
III. Ambulatory dysfunction
IV. CLL, chronic immunosuppression
-Fall precautions
-Meclizine 25 mg every 8 hours as needed
-PT
-ENT follow-up
-Please obtain medical records from [facility] and [facility]
-Outpatient neurology follow-up in 4 weeks
-Please contact neurology service with any questions or concerns
I personally reviewed all radiology and labs along with past medical records pertinent to current medical problems. Total time spent in patient care is 35 minutes.
Thank you for allowing us to participate in the care of this patient. Please do not hesitate to contact us with any questions or concerns.
Objective Data
Vital Signs
Temp Pulse Resp BP Pulse Ox
36.6 C 67 18 110/59 100
09/15/24 16:21 09/15/24 16:21 09/15/24 16:21 09/15/24 16:21 09/15/24 16:21
Lab Results
09/15/24 05:55
09/15/24 05:55
Sodium 138 mmol/L (135-145) 09/15/24 05:55
Potassium 5.1 mmol/L (3.5-5.1) 09/15/24 05:55
BUN 23 mg/dl (9-20) H 09/15/24 05:55
Glucose 115 mg/dl (70-99) H 09/15/24 05:55
Calcium 9.0 mg/dl (8.4-10.2) 09/15/24 05:55
Patient Allergies
Penicillins Allergy (Verified 09/14/24 11:12)
Hives
Vital Signs and Labs
-
Vital Signs and Labs:
Vital Signs
Temp Pulse Resp BP Pulse Ox
36.6 C 67 18 110/59 100
09/15/24 16:21 09/15/24 16:21 09/15/24 16:21 09/15/24 16:21 09/15/24 16:21
Lab Results
09/15/24 05:55
09/15/24 05:55
Sodium 138 mmol/L (135-145) 09/15/24 05:55
Potassium 5.1 mmol/L (3.5-5.1) 09/15/24 05:55
BUN 23 mg/dl (9-20) H 09/15/24 05:55
Glucose 115 mg/dl (70-99) H 09/15/24 05:55
Calcium 9.0 mg/dl (8.4-10.2) 09/15/24 05:55
Medications
-
Medications:
Generic Name Dose Route Start Last Admin
Trade Name Freq PRN Reason Stop Dose Admin
Acetaminophen 650 mg 09/14/24 18:30
Acetaminophen 325 Mg Tablet PO 10/12/24 18:29
Q4HPRN PRN
mild pain/ fever>100.5F
Cholecalciferol 50 mcg 09/15/24 08:00 09/15/24 08:15
Cholecalciferol (Vitamin D3) 50 Mcg Tablet (2,000 Units) PO 10/13/24 07:59 50 mcg
DAILY OMAR Administration
Dexamethasone Sodium Phosphate 8 mg 09/14/24 20:00 09/15/24 08:14
Dexamethasone 4 Mg/Ml 1 Ml Vial IV 10/12/24 19:59 8 mg
Q12H OMAR Administration
Finasteride 5 mg 09/15/24 08:00 09/15/24 08:15
Finasteride 5 Mg Tablet PO 10/13/24 07:59 5 mg
DAILY OMAR Administration
Furosemide 20 mg 09/15/24 08:00 09/15/24 08:15
Furosemide 20 Mg Tablet PO 10/13/24 07:59 20 mg
DAILY OMAR Administration
Meclizine HCl 25 mg 09/14/24 18:30
Meclizine 25 Mg Tablet PO 10/12/24 18:29
Q8HPRN PRN
dizziness/vertigo
Metoprolol Tartrate 25 mg 09/15/24 08:00 09/15/24 08:15
Metoprolol 25 Mg Regular Release Tablet PO 10/13/24 07:59 25 mg
DAILY OMAR Administration
Venetoclax [ 0 mg 09/15/24 08:00 09/15/24 08:16
Venclexta] 200 Mg ( PO 10/13/24 07:59 200 mg
2 X 100 Mg Tablets) DAILY OMAR Administration
Po Daily
Psyllium Hydrophilic Mucilloid 1 packet 09/15/24 08:00 09/15/24 08:16
Psyllium Packet PO 10/13/24 07:59 1 packet
DAILY OMAR Administration
Rosuvastatin Calcium 10 mg 09/14/24 22:00 09/14/24 21:57
Rosuvastatin (Crestor) 10 Mg Tablet PO 10/12/24 21:59 10 mg
HS OMAR Administration
Saccharomyces Boulardii 250 mg 09/15/24 08:00 09/15/24 08:15
Saccharomyces Boulardi (Florastor) 250 Mg Capsule PO 10/13/24 07:59 250 mg
DAILY OMAR Administration
Home Medications
-
Home Medications
Saccharomyces boulardii 250 mg capsule (Florastor) 250 mg PO DAILY Gastrointestinal issue 12/28/22
cholecalciferol (vitamin D3) 50 mcg (2,000 unit) tablet (Vitamin D3) 50 mcg PO DAILY Supplement 12/28/22
furosemide 20 mg tablet 20 mg PO DAILY Fluid retention/Swelling 12/28/22
rosuvastatin 10 mg tablet (Crestor) 10 mg PO HS High Cholesterol 08/08/23
psyllium husk (aspartame) 3.4 gram oral powder packet (Metamucil Fiber Singles) 1 packet PO DAILY Constipation #44 ea 08/09/23
finasteride 5 mg tablet 5 mg PO DAILY BPH 09/14/24
metoprolol tartrate 25 mg tablet 25 mg PO DAILY Blood Pressure 09/14/24
venetoclax 100 mg tablet (Venclexta) 200 mg PO DAILY Antineoplastic Agent 09/14/24
[2024-09-15] MEDS: CRESTOR 10 MG PO (21:49)
[2024-09-16] VITALS (9 sets, daily range): BP systolic 106–121; BP diastolic 59–72; PULSE 55–82; BMI 27.5
[2024-09-16 09:30] LABS: Blood Urea Nitrogen 32 mg/dl (9-20); Calcium 9.8 mg/dl (8.4-10.2); Carbon Dioxide 26 mmol/L (22-30); Chloride 101 mmol/L (98-107); Estimated Creatinine Clearance 53 ml/min; Glucose 151 mg/dl (70-99); Potassium 4.5 mmol/L (3.5-5.1); Sodium 139 mmol/L (135-145); eGFR > 60.00
[2024-09-16] MEDS: LASIX 20 MG PO (09:57)
[2024-09-16] MEDS: FLORASTOR 250 MG PO (09:57)
--- NOTE | 2024-09-16 10:01 | W.PN.HOSP.TC ---
Addendum entered and electronically signed by Selam Omalley MD 09/16/24 10:07:
Continue with oculomotor exercises,Balance training and habituation exercises.
Addendum entered and electronically signed by Selam Omalley MD 09/16/24 10:06:
D/W ENT Rocky not helpful now.
Continue PT
Original Note:
Today's Communication/Plan
-
Ill check with ENT to see if he can get Rocky's Vestibular Rx here inpatient.
Meclizine
Discharge planning will be coordinated with ENT
Needs OP ENT eval for hearing testing and also OP vestibular Rx
Assessment / Plan
Assessment / Plan
78 y/o pleasant gentleman presented to the hospital with about 10 days of dizziness. He also had some hearing loss. He stated that he always had mild hearing loss in the ear but it is markedly gone down. He also hears some clicking noise in the
left ear mostly. He states that laying in bed or sitting in 1 position does not cause any problems when he changes position to either sides or sits up or stands up and starts walking he feels uncomfortable to point where he has been using a walker.
nO fever. Had a URI in Jul which lasted almost all of JUL. Father with H/O hearing loss at old age.
Did not sleep well last night because of steroids. He does not feel Mutch of an improvement. He states that he still has off-balance feeling when he walks. If he does not change position he feels fine.
On examination awake alert oriented conversant
Cardiovascular system S1-S2 appreciated
Chest clear to auscultation
Abdomen soft and nontender
Neuro exam-Nystagmus still present
# Vertigo
Peripheral vertigo with severe symptoms
MRI neg for CVA
As needed meclizine changed to standing dose.
ENT evaluation and Neuro eval appreciated
PT consultation for vestibular/balance training
PT eval noted from yesterday
Ill check with ENT to see if he can get Rocky's Vestibular Rx here inpatient.
# Hearing loss
Patient has seen Dr. Bruce a year ago
Steroids started to treat labyrinthitis
Patient is aware that hearing deficit may or may not improve
He feels hearing slightly better
# Atrial fibrillation-paroxysmal diagnosed in 2011
Taken off of anticoagulation in 2019 when he had subdural hemorrhage
Patient had a Linq monitor placed in 2019 with no evidence of A-fib on interrogation per patient
He follows with [facility] cardiology
History of A-fib ablation
Continue with metoprolol
# Prostate disease-continue finasteride
# Chronic HFpEF-Lasix as needed
# CLL-on Venclexta
# Hyperlipidemia-on Crestor
# History of pleural effusion with thoracentesis and left Pleurx catheter in the past
# History of subdural hematoma
# Diverticulosis
# Multilevel C-spine DJD
# DVT prophylaxis
# Full code
Discussed with family at bedside
D/W ENT and PT
D/W RN
Anticipated Discharge: Within 24 hours
Subjective/Interval History
-
Date of Service: September 16, 2024
Objective Data
-
Labs:
Laboratory Results
09/16/24
08:48
Sodium 139
Potassium 4.5
Chloride 101
Carbon Dioxide 26
BUN 32 H
Creatinine 1.0
Glucose 151 H
Calcium 9.8
Vital Signs:
Vital Signs
Temp Pulse Resp BP Pulse Ox
97.5 F 65 16 110/68 98
09/16/24 07:52 09/16/24 08:01 09/16/24 07:52 09/16/24 08:01 09/16/24 09:29
I&O
09/15/24 09/16/24 09/17/24
06:59 06:59 06:59
Intake Total 1190 / 1190
Balance 1190 / 1190
[2024-09-16] MEDS: VITAMIN D3 (cholecalciferol) 50 MCG PO (10:02)
[2024-09-16] MEDS: LOPRESSOR 25 MG PO (10:02)
[2024-09-16] MEDS: METAMUCIL, KONSYL 1 PACKET PO (10:03)
[2024-09-16] MEDS: DECADRON 8 MG IV (10:03)
[2024-09-16] MEDS: PROSCAR 5 MG PO (10:04)
[2024-09-16] MEDS: NON-FORMULARY ITEM 200 MG PO (10:06)
--- NOTE | 2024-09-16 10:07 | W.PN.UPDATE ---
Update Note
Progress Note Update
Hyperglycemia and elevated BUN from steroids
[2024-09-16] MEDS: ANTIVERT 25 MG PO (10:17)
--- NOTE | 2024-09-16 12:32 | W.PN.ENT ---
Today's Communication
-
Stable for discharge home, patient to follow-up in my office tomorrow for further evaluation.
Impression / Plan
-
A/B-10-kb[age]-old male with dizziness and imbalance, likely viral labyrinthitis.
-CT and MRI both within normal limits.
-Remains imbalanced with walking.
-Most likely cause would be viral labyrinthitis.
-Patient has been on steroids for 36 hours.
-Seems to be medically safe and stable overall.
-Discussed discharge with patient. Both patient and his daughter feel like he is safe to return home.
-Patient will continue oral prednisone taper, sent into pharmacy.
-Patient will see me in my office tomorrow at 11:15 AM to have his ears reexamined and his hearing checked.
-Patient will need outpatient physical and vestibular therapy set up at the [facility].
-Patient may need visiting nursing depending upon his assessed needs at home.
Subjective Data
-
Patient still with imbalance with walking.
Feels unsteady.
Able to move around with a walker and some assistance.
Feels fine sitting or lying down.
Denies nausea or vomiting, tolerating p.o.
Hearing unchanged.
Objective Data
-
Vital Signs
Temp Pulse Resp BP Pulse Ox
97.5 F 63 14 107/67 99
09/16/24 11:05 09/16/24 11:05 09/16/24 11:05 09/16/24 12:25 09/16/24 11:05
Intake & Output
09/15/24 09/16/24 09/17/24
06:59 06:59 06:59
Intake:
Oral fluids 1190 / 1190
Other:
Number of approximated MODERATE 2
amounts of urine
Number of approximated LARGE 2
amounts of urine
Lab Results
09/15/24 05:55
09/16/24 08:48
Calcium 9.8 mg/dl (8.4-10.2) 09/16/24 08:48
Total Bilirubin 0.9 mg/dl (0.2-1.3) 09/14/24 11:24
AST 24 U/L (17-59) 09/14/24 11:24
ALT 22 U/L (0-50) 09/14/24 11:24
Alkaline Phosphatase 118 U/L (38-126) 09/14/24 11:24
Physical Exam
-
Awake, alert, oriented, in no acute distress.
Pupils equally round and reactive to light and accommodation bilaterally.
Extraocular motions intact.
? Brief nystagmus to left with left lateral gaze.
Otherwise neurologically intact.
Remainder of physical exam within normal limits.
--- NOTE | 2024-09-16 13:22 | W.PN.UPDATE ---
Update Note
Progress Note Update
Discussed with ENT, OK for discharge on PO steroids.
Patient really wants to go home as he had a 3-week hospital stay at [facility] and by the end of it he was really not feeling well. He feels that he will be better off Going home and following up with Dr. Gonzalez for tomorrow and he also schedule an
appointment with physical therapy for 2 PM tomorrow.
I expressed my concern about falls at home with history of history of subdural ,but he endorses that there will be somebody with him all the time and he does not generally get out of bed without notifying them. Distance to travel to the bathroom is
not that far and also he has grab bars.
Family at bedside confirms that they will be staying with him.
More than 30 minutes spent in discharge including
Final examination of the patient
Summarizing hospital stay
Instructions for continuing care to all relevant caregivers
Preparation of discharge records, prescriptions, and referral forms
Total time spent (in minutes): 39 min
--- NOTE | 2024-09-16 13:50 | W.DS.TRANS ---
Addendum entered and electronically signed by Selam Omalley MD 09/17/24 08:25:
Dictation- [id number]
Original Note:
DC Summary - Quality Assurance Engineer
-
Discharge Instructions:
Discharge Diagnosis/Procedures Vertigo
Hearing loss
Paroxysmal atrial fibrillation
Prostate disease
Chronic HFpEF
CLL
Hyperlipidemia
History of subdural hematoma
Diverticulosis
Multilevel cervical spine DJD
Diet As tolerated
Activity As tolerated,With assistance
Driving Restrictions Not until seen by your Dr
Other Services VN,PT
Instructions:
Stand-Alone Forms:
Changes to Home Medications: Yes
Discharge Medications:
DC Medications w/original date entered in [employer]
Saccharomyces boulardii 250 mg capsule (Florastor) 250 mg PO DAILY Gastrointestinal issue 12/28/22
cholecalciferol (vitamin D3) 50 mcg (2,000 unit) tablet (Vitamin D3) 50 mcg PO DAILY Supplement 12/28/22
rosuvastatin 10 mg tablet (Crestor) 10 mg PO HS High Cholesterol 08/08/23
psyllium husk (aspartame) 3.4 gram oral powder packet (Metamucil Fiber Singles) 1 packet PO DAILY Constipation #44 ea 08/09/23
metoprolol tartrate 25 mg tablet 25 mg PO DAILY Blood Pressure 09/14/24
venetoclax 100 mg tablet (Venclexta) 200 mg PO DAILY Antineoplastic Agent 09/14/24
famotidine 20 mg tablet (Pepcid) 20 mg PO DAILY while you are on steroids #30 tabs 09/16/24
finasteride 5 mg tablet 5 mg PO DAILY prostate #0 tabs 09/16/24
furosemide 20 mg tablet 20 mg PO DAILY Fluid retention/Swelling #0 tabs 09/16/24
meclizine 25 mg tablet 25 mg PO Q8 PRN vertigo #40 tabs 09/16/24
prednisone 10 mg tablet 10 mg PO DAILY Anti-inflammatory #60 tabs 09/16/24
Home Medication Changes
new
prednisone
Pepcid
Meclizine
Pending Results: No
== END 2024-09-16 15:32 | disposition home or self-care (01) | DRG 149 ==
LOC: 2 NORTH 18:24
PROVIDERS: Physician Assistant Medical; ADMITTING PHYSICIAN Hospitalist; CONSULT PHYSICIAN Otolaryngology; CONSULT PHYSICIAN Psychiatry & Neurology Neurology; EMERGENCY PHYSICIAN Emergency Medicine; FAMILY PHYSICIAN Family Medicine
DX: H83.02 Labyrinthitis, left ear (principal); I13.0 Hypertensive heart and chronic kidney disease with heart failure and stage 1 through stage 4 chronic kidney disease, or unspecified chronic kidney disease; I50.32 Chronic diastolic (congestive) heart failure; C91.10 Chronic lymphocytic leukemia of B-cell type not having achieved remission; D84.821 Immunodeficiency due to drugs; H91.93 Unspecified hearing loss, bilateral; I48.0 Paroxysmal atrial fibrillation; N40.0 Benign prostatic hyperplasia without lower urinary tract symptoms; N18.30 Chronic kidney disease, stage 3 unspecified; E78.00 Pure hypercholesterolemia, unspecified; M47.812 Spondylosis without myelopathy or radiculopathy, cervical region; Z88.0 Allergy status to penicillin; D64.9 Anemia, unspecified; K21.9 Gastro-esophageal reflux disease without esophagitis; K57.90 Diverticulosis of intestine, part unspecified, without perforation or abscess without bleeding; Z87.892 Personal history of anaphylaxis; H55.00 Unspecified nystagmus; R73.9 Hyperglycemia, unspecified; Z79.69 Long term (current) use of other immunomodulators and immunosuppressants; Z86.59 Personal history of other mental and behavioral disorders; Z87.442 Personal history of urinary calculi
CPT/HCPCS: 70551; 80048; 80053; 85025; 85027; 93005; 97110; 97116; 97163; 97166; 97530; 99285

== ENCOUNTER 2024-09-17 08:29 | Outpatient (RCR) | payer MEDICARE, SELFPAY | END 2024-09-17 23:59 | disposition home or self-care (01) | LOC: RPT 08:29 | PROVIDERS: ATTENDING PHYSICIAN Otolaryngology; FAMILY PHYSICIAN Family Medicine | DX: R42 Dizziness and giddiness (principal); H83.09 Labyrinthitis, unspecified ear; Z73.6 Limitation of activities due to disability; M62.81 Muscle weakness (generalized); R26.89 Other abnormalities of gait and mobility; C91.10 Chronic lymphocytic leukemia of B-cell type not having achieved remission | CPT/HCPCS: 97112; 97163 ==

== ENCOUNTER 2024-10-16 09:47 | Outpatient (RCR) | payer MEDICARE, SELFPAY | END 2024-10-16 23:59 | disposition home or self-care (01) | LOC: RPT 09:47 | PROVIDERS: ATTENDING PHYSICIAN Otolaryngology; FAMILY PHYSICIAN Family Medicine | DX: R42 Dizziness and giddiness (principal); H83.09 Labyrinthitis, unspecified ear; Z73.6 Limitation of activities due to disability; M62.81 Muscle weakness (generalized); R26.89 Other abnormalities of gait and mobility; C91.10 Chronic lymphocytic leukemia of B-cell type not having achieved remission | CPT/HCPCS: 97110; 97112; 97116 ==

== ENCOUNTER 2024-10-27 12:42 | Outpatient (RCR) | payer MEDICARE, SELFPAY | END 2024-10-27 23:59 | disposition home or self-care (01) | LOC: RPT 12:42 | PROVIDERS: ATTENDING PHYSICIAN Otolaryngology; FAMILY PHYSICIAN Family Medicine | DX: R42 Dizziness and giddiness (principal); H83.09 Labyrinthitis, unspecified ear; Z73.6 Limitation of activities due to disability; M62.81 Muscle weakness (generalized); R26.89 Other abnormalities of gait and mobility; C91.10 Chronic lymphocytic leukemia of B-cell type not having achieved remission | CPT/HCPCS: 97110; 97112; 97116 ==

== ENCOUNTER 2024-11-16 13:53 | Outpatient (RCR) | payer MEDICARE, SELFPAY | END 2024-11-16 23:59 | disposition home or self-care (01) | LOC: RPT 13:53 | PROVIDERS: ATTENDING PHYSICIAN Family Medicine | DX: M54.32 Sciatica, left side (principal); M54.16 Radiculopathy, lumbar region; Z73.6 Limitation of activities due to disability | CPT/HCPCS: 97010; 97110; 97112; 97162 ==

== ENCOUNTER 2024-11-17 11:50 | Outpatient (RCR) | payer MEDICARE, SELFPAY | END 2024-11-17 23:59 | disposition home or self-care (01) | LOC: RPT 11:50 | PROVIDERS: ATTENDING PHYSICIAN Family Medicine | DX: M54.32 Sciatica, left side (principal); M54.16 Radiculopathy, lumbar region; Z73.6 Limitation of activities due to disability | CPT/HCPCS: 97010; 97110; 97112; 97530 ==

== ENCOUNTER 2024-12-14 12:48 | Outpatient (RCR) | payer MEDICARE, SELFPAY | END 2024-12-14 23:59 | disposition home or self-care (01) | LOC: RPT 12:48 | PROVIDERS: ATTENDING PHYSICIAN Otolaryngology; FAMILY PHYSICIAN Family Medicine | DX: R42 Dizziness and giddiness (principal); H83.09 Labyrinthitis, unspecified ear; M62.81 Muscle weakness (generalized); R26.89 Other abnormalities of gait and mobility; Z73.6 Limitation of activities due to disability; C91.10 Chronic lymphocytic leukemia of B-cell type not having achieved remission | CPT/HCPCS: 97110; 97112; 97116; 97530 ==

== ENCOUNTER 2024-12-25 09:45 | Outpatient (RCR) | payer MEDICARE, SELFPAY | END 2024-12-28 23:59 | disposition home or self-care (01) | LOC: RPT 09:45 | PROVIDERS: ATTENDING PHYSICIAN Otolaryngology; FAMILY PHYSICIAN Family Medicine | DX: R42 Dizziness and giddiness (principal); H83.09 Labyrinthitis, unspecified ear; M62.81 Muscle weakness (generalized); R26.89 Other abnormalities of gait and mobility; Z73.6 Limitation of activities due to disability; C91.10 Chronic lymphocytic leukemia of B-cell type not having achieved remission | CPT/HCPCS: 97110; 97112; 97116; 97530 ==

== ENCOUNTER 2025-01-15 07:54 | Outpatient (RCR) | payer MEDICARE, SELFPAY | END 2025-01-15 23:59 | disposition home or self-care (01) | LOC: RPT 07:54 | PROVIDERS: ATTENDING PHYSICIAN Family Medicine | DX: M54.32 Sciatica, left side (principal); M54.16 Radiculopathy, lumbar region; Z73.6 Limitation of activities due to disability; C95.90 Leukemia, unspecified not having achieved remission | CPT/HCPCS: 97010; 97110; 97112 ==

== ENCOUNTER 2025-02-10 09:24 | Outpatient (RCR) | payer MEDICARE, SELFPAY | END 2025-02-10 23:59 | disposition home or self-care (01) | LOC: RPT 09:24 | PROVIDERS: ATTENDING PHYSICIAN Otolaryngology; FAMILY PHYSICIAN Family Medicine | DX: R42 Dizziness and giddiness (principal); H83.09 Labyrinthitis, unspecified ear; M62.81 Muscle weakness (generalized); R26.89 Other abnormalities of gait and mobility; Z73.6 Limitation of activities due to disability; C91.10 Chronic lymphocytic leukemia of B-cell type not having achieved remission | CPT/HCPCS: 97110; 97112; 97116; 97530 ==

== ENCOUNTER 2025-03-18 09:51 | Outpatient (RCR) | payer MEDICARE, SELFPAY | END 2025-03-18 23:59 | disposition home or self-care (01) | LOC: RPT 09:51 | PROVIDERS: ATTENDING PHYSICIAN Otolaryngology; FAMILY PHYSICIAN Family Medicine | DX: R42 Dizziness and giddiness (principal); H83.09 Labyrinthitis, unspecified ear; Z73.6 Limitation of activities due to disability; M62.81 Muscle weakness (generalized); R26.89 Other abnormalities of gait and mobility; C91.10 Chronic lymphocytic leukemia of B-cell type not having achieved remission | CPT/HCPCS: 97110; 97112; 97116; 97530 ==

== ENCOUNTER → 2025-03-30 17:54 | Outpatient (REF) | payer MEDICARE, SELFPAY | LOC: MRI 17:54 | PROVIDERS: ATTENDING PHYSICIAN Family Medicine | DX: R42 Dizziness and giddiness (principal) | CPT/HCPCS: 70551 ==

== ENCOUNTER 2025-04-14 09:51 | Outpatient (RCR) | payer MEDICARE, SELFPAY | END 2025-04-14 23:59 | disposition home or self-care (01) | LOC: RPT 09:51 | PROVIDERS: ATTENDING PHYSICIAN Otolaryngology; FAMILY PHYSICIAN Family Medicine | DX: R42 Dizziness and giddiness (principal); H83.09 Labyrinthitis, unspecified ear; Z73.6 Limitation of activities due to disability; M62.81 Muscle weakness (generalized); R26.89 Other abnormalities of gait and mobility; C91.10 Chronic lymphocytic leukemia of B-cell type not having achieved remission | CPT/HCPCS: 97110; 97112; 97530 ==

== ENCOUNTER 2025-05-10 10:07 | Outpatient (RCR) | payer MEDICARE, SELFPAY | END 2025-05-10 23:59 | disposition home or self-care (01) | LOC: RPT 10:07 | PROVIDERS: ATTENDING PHYSICIAN Otolaryngology; FAMILY PHYSICIAN Family Medicine | DX: R42 Dizziness and giddiness (principal); H83.09 Labyrinthitis, unspecified ear; Z73.6 Limitation of activities due to disability; M62.81 Muscle weakness (generalized); R26.89 Other abnormalities of gait and mobility; C91.10 Chronic lymphocytic leukemia of B-cell type not having achieved remission | CPT/HCPCS: 97110; 97112; 97116; 97530 ==

== ENCOUNTER 2025-06-18 09:21 | Outpatient (RCR) | payer MEDICARE, SELFPAY | END 2025-06-18 23:59 | disposition home or self-care (01) | LOC: RPT 09:21 | PROVIDERS: ATTENDING PHYSICIAN Otolaryngology; FAMILY PHYSICIAN Family Medicine | DX: R42 Dizziness and giddiness (principal); M54.32 Sciatica, left side (principal); H83.09 Labyrinthitis, unspecified ear; Z73.6 Limitation of activities due to disability; M62.81 Muscle weakness (generalized); R26.89 Other abnormalities of gait and mobility; C91.10 Chronic lymphocytic leukemia of B-cell type not having achieved remission | CPT/HCPCS: 97110; 97112; 97530 ==

== ENCOUNTER 2025-07-02 08:27 | Outpatient (RCR) | payer MEDICARE, SELFPAY | END 2025-07-08 14:13 | disposition home or self-care (01) | LOC: RPT 08:27 | PROVIDERS: ATTENDING PHYSICIAN Otolaryngology; FAMILY PHYSICIAN Family Medicine | DX: R42 Dizziness and giddiness (principal); H83.09 Labyrinthitis, unspecified ear; Z73.6 Limitation of activities due to disability; M62.81 Muscle weakness (generalized); R26.89 Other abnormalities of gait and mobility; C91.10 Chronic lymphocytic leukemia of B-cell type not having achieved remission; M54.32 Sciatica, left side | CPT/HCPCS: 97110; 97112; 97116; 97530 ==